=== PATIENT | female | born 1995 | race Caucasian/White ===

== ENCOUNTER 2017-09-17 16:22 | Emergency (ER) | payer OTHER, SELFPAY ==
[2017-09-17 16:23] VITALS: BP 137/94; PULSE 111; RESP 16; TEMP 35.4; O2SAT 98; BMI 25.7
--- NOTE | 2017-09-17 16:35 | ED.DCSUM_ITS ---
- ER Visit Summary Date of Service: 09/17/17 Chief Complaint: Migraine headache History of Present Illness: The patient is a 22 F with a history of migraines presenting with a migraine type headache for the past 5-6 days. It started as her typical migraine, not severe or sudden at onset. Not the worst headache of her life. It is in the same location and of the same character as usual but is persisting. She is nauseated and has vomited a few times and is concerned she is becoming dehydrated. No neck pain, fever, flulike symptoms, or recent sick contacts. No visual changes, paresthesias, or weakness. Physical Examination: Vitals are within normal limits except for mild tachycardia. She is not in distress. No meningeal findings. Turbinates not swollen and no secretions at the nares. Mucous membranes are somewhat dry. Heart tones are regular and without murmur. Lungs are clear bilaterally. Abdomen is soft and nontender. Is no focal or lateralizing neuro findings. Test Results: None performed Emergency Department Course and Treatment: She was ordered IV fluids, Benadryl Compazine and Toradol. She will be observed and repeat examination will be performed. This headache was not severe at onset or sudden onset. Not the worst headache of her life. Neurologic exam is normal. I do not feel she needs a head CT. She has no signs of meningitis and no infectious symptoms. Treatment Plan: IV fluids and medication Disposition: Home after reevaluation Impression: Initial encounter for acute migraine This note was generated with [employer] dictation software. It may contain incorrect words, spelling, and punctuation that were not noted in review of the chart prior to signing ED Disposition - Plan for ED Patient: Chief Complaint: Headache Instructions: ED Headache Migraine Referrals: Petar Mendieta MD [Primary Care Provider] - As soon as possible
[2017-09-17] MEDS: DiphenhydrAMINE 50 MG/ML Syringe 25 MG IV (16:59)
[2017-09-17] MEDS: Ketorolac 30 MG/ML Syringe IV (17:00)
[2017-09-17] MEDS: proCHLORPERazine 10 MG/2 ML Vial IV (17:00)
[2017-09-17] MEDS: 0.9% Normal Saline 1,000 ML 999 ML IV (17:00)
== END 2017-09-17 18:18 | disposition home or self-care (01) ==
PROVIDERS: Emergency Provider Emergency Medicine; Family Provider Physician Assistant; PCP Physician Assistant
DX: G43.909 Migraine, unspecified, not intractable, without status migrainosus (principal); G89.29 Other chronic pain; F41.9 Anxiety disorder, unspecified; Z72.0 Tobacco use; Z79.899 Other long term (current) drug therapy
CPT/HCPCS: 96361; 96374; 96375; 99283; J7030; A4216

== ENCOUNTER 2018-05-06 08:29 | Emergency (ER) | payer SELFPAY ==
[2018-05-06 08:30] VITALS: BP 138/106; PULSE 108; RESP 19; TEMP 36.4; O2SAT 99; BMI 28.3
--- NOTE | 2018-05-06 08:46 | CT_ITS ---
STUDY: CT ABDOMEN AND PELVIS WITHOUT CONTRAST REASON FOR EXAM: Female, 23 years old. Nausea. Abdominal pain. RADIATION DOSAGE (If Supplied By Facility): CTDIvol = ( 6.89 ) mGy, DLP = ( 340.86 ) mGycm TECHNIQUE: Transaxial images were obtained from the dome of the diaphragm to the symphysis pubis without oral contrast, and without intravenous contrast. Sagittal and coronal images were reconstructed. Individualized dose optimization techniques were used for this CT. COMPARISON: Comparison is made with prior study dated June 10, 2017. FINDINGS: The visualized lung bases are unremarkable. The visualized portions of the heart are within normal limits. Normal liver. Normal gallbladder and extrahepatic biliary system. Normal spleen. Normal pancreas. Normal bilateral adrenal glands. Normal right kidney. Normal left kidney. There is a small hiatal hernia. Normal small intestine. Normal colon. The appendix is visualized and appears normal. Normal abdominal aorta. Normal inferior vena cava. Normal retroperitoneum. Normal urinary bladder. Follicles are seen in both ovaries. Small benign-appearing bilateral inguinal lymph nodes. Normal osseous structures. CT/Abdomen/Pelvis without Cont IMPRESSION: No acute abnormality is seen. Electronically Signed: Arik Brown MD at 10:50 EDT Tel [phone], Service support ,
[2018-05-06 09:25] LABS: Bacteria 0 SEEN /hpf (None Seen); Mucous, Urine 0 SEEN /hpf (<or=2+); Red Blood Cells-Urine 0 SEEN /hpf (0-5)
[2018-05-06 09:45] LABS: Color, Urine Yellow (Yellow); Glucose, Dipstick Normal (Normal); Ketone-Dipstick 50 mg/dl (Negative); Leukocyte Esterase-Dipstick 25 /ul (Negative); Nitrite-Dipstick Negative (Negative); Occult Blood-Urine Negative /ul (Negative); Protein-Dipstick 15 mg/dl (Negative); Specific Gravity, Urine 1.015 (1.002-1.030); Urine Bilirubin Dipstick Negative (Negative); Urine Clarity Sl. Cloudy (Clear); Urine Urobilinogen Normal (Normal); Urine pH 6.5 (5.0 - 8.0)
[2018-05-06 09:53] LABS: Internal QC Validated? YES +Cl - CLEAR BKGD; Pregnancy, Urine Negative Negative
[2018-05-06 09:55] LABS: Squamous Epithelial Cells - UA 0-5 SEEN /hpf (5-10); White Blood Cells 0-5 SEEN /hpf (0-5)
--- NOTE | 2018-05-06 11:01 | ED.DCSUM_ITS ---
- ER Visit Summary Date of Service: 05/06/18 Chief Complaint: Abdominal pain History of Present Illness: The patient is a 23 F who states that she woke this morning with a sharp right lower quadrant abdominal pain. She notes associated nausea. She notes a history of ovarian cyst. She states that the pain is constant worse with movement. No fevers. Normal bowel movements Physical Examination: Afebrile vital signs are stable Gen: Well-nourished well-developed Head: Normocephalic atraumatic Eyes: Perrl EOMI ENT: TMs clear no rhinorrhea moist mucous membranes Neck: Supple no lymphadenopathy no JVD nontender CVS: Regular rate rhythm no murmurs normal S1-S2 Respiratory: No distress clear to auscultation bilaterally chest nontender Abdomen: Soft tender palpation in the right lower quadrant without guarding or rebound nondistended normal bowel sounds no masses Back: Nontender Extremity: Nontender no edema Skin: Normal color no rash Neuro: alert orientated ?3 CN II-XII intact normal strength sensation reflexes gait cerebellar Psych: Normal affect normal mood Test Results: Urinalysis and test were negative. CT abdomen pelvis negative. Emergency Department Course and Treatment: She will be discharged home with supportive care and observation. Return if worsening or concerns. Impression: 1. Abdominal pain This note was generated with [employer] dictation software. It may contain incorrect words, spelling, and punctuation that were not noted in review of the chart prior to signing ED Disposition - Plan for ED Patient: Disposition: Home or Assisted Living Chief Complaint: Abd Pain Instructions: ED Abdominal Pain Unkn Cause Prescriptions: Ibuprofen [Motrin] 800 mg PO TID PRN PRN #20 tab PRN Reason: Pain Referrals: Kyree Mcnamara PA [Primary Care Provider] - 1-2 Days if not improving
[2018-05-06 11:10] VITALS: BP 98/54; PULSE 79; RESP 14
== END 2018-05-06 11:13 | disposition home or self-care (01) ==
PROVIDERS: Emergency Provider Emergency Medicine; Family Provider Physician Assistant; PCP Physician Assistant
DX: R10.31 Right lower quadrant pain (principal); R11.0 Nausea; F32.9 Major depressive disorder, single episode, unspecified; Z79.899 Other long term (current) drug therapy
CPT/HCPCS: 74176; 81001; 81025; 99282

== ENCOUNTER 2018-05-11 10:59 | Emergency (ER) | payer SELFPAY ==
[2018-05-11 11:01] VITALS: BP 117/98; PULSE 89; RESP 15; TEMP 36.1; O2SAT 100
--- NOTE | 2018-05-11 11:15 | CT_ITS ---
STUDY: CT ABDOMEN AND PELVIS WITH CONTRAST REASON FOR EXAM: Female, 23 years old. 6 day history of right lower quadrant pain. RADIATION DOSAGE (If Supplied By Facility): CTDIvol = ( 14.06 ) mGy, DLP = ( 914.12 ) mGycm TECHNIQUE: Transaxial images were obtained from the dome of the diaphragm to the symphysis pubis with oral contrast. 100 ml of Isovue 300 contrast was administered. Sagittal and coronal images were reconstructed. Individualized dose optimization techniques were used for this CT. COMPARISON: Comparison is made with prior study dated May 06, 2018. FINDINGS: The visualized lung bases are unremarkable. The visualized portions of the heart are within normal limits. Normal liver. Normal gallbladder and extrahepatic biliary system. Normal spleen. Normal pancreas. Normal bilateral adrenal glands. Normal right kidney. Normal left kidney. There is a small hiatal hernia. Normal small intestine. Normal colon. The appendix is visualized and appears normal. Normal abdominal aorta. Normal inferior vena cava. There is borderline retroperitoneal lymphadenopathy with enlarged nodes no greater than 10mm in the short axis diameter. Distended urinary bladder. 2.2 cm cyst in the left ovary. Follicles are seen in the right ovary. Normal abdominal wall. Small benign-appearing bilateral inguinal nodes. Normal osseous structures. CT/Abdomen/Pelvis WITH Contrast IMPRESSION: Small left ovarian cyst. Distended urinary bladder. Electronically Signed: Arik Brown MD at 13:27 EDT Tel [phone], Service support ,
--- NOTE | 2018-05-11 11:16 | ED.VISSUMM ---
- ER Visit Summary Date of Service: 05/11/18 Chief Complaint: Abdominal pain History of Present Illness: The patient is a 23 F who reports that she has abdominal pain number began approximately 1 week ago. Is gradually gotten worse. Says sharp pain that is worst in the right lower quadrant. Is 10 out of 10 with movement 9 out of 10 when she remains still. She taken Tylenol, ibuprofen, and Flexeril without relief. She reports she has been nausea and vomiting. She vomited 3 times today. No blood or emesis. Last bowel was yesterday. She has had no melena, hematochezia, or diarrhea. No dysuria or frequency. Last menstrual period was April 14. No vaginal discharge. Physical Examination: Vitals: Stable. Afebrile. General: Well-nourished and well-developed. Head: Normocephalic atraumatic. Neck: Supple, no lymphadenopathy. No JVD. Nontender. Cardiovascular: Regular rate and rhythm. No murmurs. Respiratory: No respiratory distress. Clear to auscultation bilaterally. Abdominal: Soft, mild diffuse sinus palpation and moderate right lower quadrant tenderness to palpation, nondistended, normal bowel sounds. No guarding, rebound, or peritoneal signs. Back: Nontender. Extremities: Nontender, no edema. Skin: Normal color, no rash. Neurologic: Alert and oriented ?3. Cranial nerves II through XII are intact. Normal strength and sensation. Psych: Normal affect. Test Results: CBC and Chem-7 are normal. LFTs and lipase are normal. CT shows a normal appendix. Clinical Impression(s) from Imaging Studies Abdomen/Pelvis CT 05/11/18 11:15 IMPRESSION: Small left ovarian cyst. Distended urinary bladder. Electronically Signed: Arik Brown MD at 13:27 EDT Tel [phone], Service support , Emergency Department Course and Treatment: IV was placed. The patient was given Toradol and Zofran IV. She is resting comfortably. Treatment Plan: Patient will be discharged with Zofran and Bentyl. Instructed follow-up her primary care physician in 3-5 days if not improving. Return to the emergency department for any worsening symptoms. Disposition: To home in improved and stable condition. Impression: 1. Abdominal pain, uncertain cause. This note was generated with [employer] dictation software. It may contain incorrect words, spelling, and punctuation that were not noted in review of the chart prior to signing ED Disposition - Plan for ED Patient: Disposition: Home or Assisted Living Chief Complaint: Abd Pain Instructions: ED Abdominal Pain Unkn Cause Prescriptions: Ondansetron [Zofran Odt] 4 mg PO Q8H PRN PRN #10 tablet PRN Reason: Nausea Dicyclomine HCl [Bentyl] 20 mg PO TIDAC #20 capsule Referrals: Kyree Mcnamara PA [Primary Care Provider] - 3-5 Days if not improving
[2018-05-11] MEDS: Ondansetron 4 MG/2 ML Vial IV (11:29)
[2018-05-11] MEDS: 0.9% Normal Saline 1,000 ML 1000 ML IV (11:29)
[2018-05-11] MEDS: Ketorolac 30 MG/ML Syringe IV (11:30)
[2018-05-11 11:43] LABS: Absolute Lymphocyte Count 2.42 X10^3/ul (0.83-4.51); Absolute Neutrophil Count 6.2 X10^3/uL (2.0-7.7); Basophil# 0.02 X10^3/uL; Basophil% 0.2 % (0-1); Eosinophil# 0.16 X10^3/uL; Eosinophils% 1.7 % (0-5); Hemoglobin 12.5 g/dl (12.0-15.0); Lymphocyte # 2.42 X10^3/ul (4.0); Lymphocyte % 26.4 % (19-41); Mean Corp Hgb Conc 32.9 g/gl (32-36); Mean Corpuscular Hgb 29.2 pg (27.0-32.0); Mean Corpuscular Volume 88.8 fL (81-99); Mean Platelet Vol. 10.4 fl (6.2-12.0); Monocyte# 0.41 X10^3/uL; Monocyte% 4.5 % (0-10); Neutrophil # 6.15 X10^3/uL (2.7-7.7); POSITIVE COUNT NO; POSITIVE DIFFERENTIAL NO; POSITIVE MORPHOLOGY NO; Platelet Count 292 K/mm3 (150-450); RBC Distribution Width CV 13.6 % (11.6-14.6); RBC Distribution Width SD 44.1 fl (35.1-43.9); Red Blood Count 4.28 M/mm3 (4.2-5.4); White Blood Count 9.2 K/mm3 (4.4-11.0)
[2018-05-11 11:50] LABS: AST(SGOT) 20 U/L (15-37); Alanine Aminotransfer ALT/SGPT 26 U/L (13-56); Albumin, Serum 3.6 g/dL (3.2-5.0); Alkaline Phosphatase 68 U/L (45-117); Anion Gap 6 (5-15); BUN 11 mg/dL (7-18); BUN/Creat Ratio 15.7 RATIO (10-20); Bilirubin, Direct 0.09 mg/dL (0.00-0.30); Calcium,Total 8.8 mg/dL (8.5-10.1); Chloride 105 mmol/L (98-107); EST Glomerular Filtration Rate 110 mL/min (>60); Est Glom Filt Rate - Afr Amer 133 mL/min (>60); Globulin 3.9 g/dL (2.2-4.2); Glucose 86 mg/dL (74-106); Lipase 59 U/L (73-393); Potassium 3.6 mmol/L (3.5-5.1); Protein, Total 7.5 g/dL (6.4-8.2); Sodium Level 137 mmol/L (136-145)
[2018-05-11 13:30] VITALS: BP 103/58; PULSE 77; RESP 16; O2SAT 98
[2018-05-11 13:44] VITALS: BP 123/77; PULSE 74; RESP 18
== END 2018-05-11 13:45 | disposition home or self-care (01) ==
LOC: ED 11:16
PROVIDERS: Emergency Provider Emergency Medicine; Family Provider Physician Assistant; PCP Physician Assistant
DX: R10.9 Unspecified abdominal pain (principal); R11.2 Nausea with vomiting, unspecified; F32.9 Major depressive disorder, single episode, unspecified; F41.9 Anxiety disorder, unspecified; Z72.0 Tobacco use; Z79.899 Other long term (current) drug therapy
CPT/HCPCS: 74177; 80048; 80076; 83690; 85025; 96361; 96374; 96375; 99284; J7030; Q9967; A4216; J2405

== ENCOUNTER 2018-07-12 01:53 | Emergency (ER) | payer SELFPAY ==
[2018-07-12 01:53] VITALS: BMI 25.7
[2018-07-12 01:55] VITALS: BP 133/78; PULSE 77; RESP 16; TEMP 36.9; O2SAT 98; BMI 28.3
[2018-07-12] MEDS: proCHLORPERazine 10 MG/2 ML Vial IV (02:37)
[2018-07-12] MEDS: 0.9% Normal Saline 1,000 ML 999 ML IV (02:37)
[2018-07-12] MEDS: DiphenhydrAMINE 50 MG/ML Syringe 25 MG IV (02:37)
[2018-07-12] MEDS: Ketorolac 30 MG/ML Syringe IV (02:38)
--- NOTE | 2018-07-12 03:20 | ED.VISSUMM ---
- ER Visit Summary Date of Service: 07/12/18 Chief Complaint: Headache History of Present Illness: The patient is a 23 F who presents with a headache. It is been going on for about 3 days. She complains of a throbbing retro-orbital headache which she rates as 10 out of 10. She developed nausea and vomiting. She also reports light sensitivity. These symptoms are similar to her previous migraines. Her headache is similar in character and location to previous migraines. She states that this just is not resolved with usual treatment. She has been taking Tylenol and anti-inflammatories and Imitrex which normally help but did not help this time. She otherwise has anxiety depression but no other medical history. No history of head injury. No fever. No neck pain or stiffness. Physical Examination: Afebrile vitals are normal Moist mucous membranes Heart regular rate and rhythm Lungs clear Abdomen soft Alert No focal or lateralizing neurological deficits Test Results: Not indicated Emergency Department Course and Treatment: Patient was treated with Toradol, Compazine, Benadryl. I was notified by nursing staff that she was significantly improved and would like to be discharged. She understands return for new or worsening symptoms. Treatment Plan: [] Disposition: Discharge Impression: Migraine This note was generated with [employer] dictation software. It may contain incorrect words, spelling, and punctuation that were not noted in review of the chart prior to signing ED Disposition - Plan for ED Patient: Chief Complaint: Headache Referrals: Kyree Mcnamara PA [Primary Care Provider] -
--- NOTE | 2018-07-12 03:22 | ED.DEP ---
ED Disposition - Plan for ED Patient: Chief Complaint: Headache Instructions: ED Headache Migraine Referrals: Kyree Mcnamara PA [Primary Care Provider] -
[2018-07-12 03:46] VITALS: RESP 14
== END 2018-07-12 03:46 | disposition home or self-care (01) ==
LOC: ED 02:15
PROVIDERS: Emergency Provider Emergency Medicine; Family Provider Physician Assistant; PCP Physician Assistant
DX: G43.909 Migraine, unspecified, not intractable, without status migrainosus (principal); F32.9 Major depressive disorder, single episode, unspecified; F41.9 Anxiety disorder, unspecified; Z72.0 Tobacco use; Z79.899 Other long term (current) drug therapy
CPT/HCPCS: 96361; 96374; 96375; 99283; J7030; A4216

== ENCOUNTER 2018-10-12 22:02 | Emergency (ER) | payer SELFPAY ==
[2018-10-12 22:03] VITALS: BP 142/90; PULSE 106; RESP 18; TEMP 37; O2SAT 97; BMI 27.4
--- NOTE | 2018-10-12 22:20 | ED.VISSUMM ---
- ER Visit Summary Date of Service: 10/12/18 Chief Complaint: Headache History of Present Illness: The patient is a 23 F with history of migraine headache presents to the emergency department with headache. Patient states this is her normal headache. It started yesterday. She states that this is her normal headache. She describes as a dull ache in her eyes and photophobia. She is also had nausea and vomiting. She is tried sumatriptan with little improvement. She denies any fevers or chills. She denies any trauma. She had no neck pain. Physical Examination: Well-appearing patient is in no acute distress. Head is normocephalic, atraumatic. Pupils equal round reactive, extraocular muscles intact. There is no temporal artery tenderness. There is no vesicular rash. Neck supple. Kernig's and Brudzinski's are negative. Heart regular rate and rhythm. Lungs clear, chest nontender. Abdomen soft, nontender, nondistended. Neuro exam displays no focal or lateralizing deficit. 2+ symmetric lower extremity reflexes. No clonus. No ataxia or gait abnormality. Test Results: [] Emergency Department Course and Treatment: The patient presents with a normal headache. She is not meningitic. She is nonencephalopathic. She has a normal neurologic examination. IV was established. The patient was treated with migraine abortive medications. On reevaluation, she is feeling markedly improved. She continues to have a normal exam. At this time, I do feel that she is safe for outpatient therapy. Patient states she does not need any refills on her medications. She is counseled on concerning symptoms and reasons to return. She will be discharged home. Treatment Plan: [] Disposition: Discharge Impression: Migraine headache This note was generated with [employer] dictation software. It may contain incorrect words, spelling, and punctuation that were not noted in review of the chart prior to signing ED Disposition - Plan for ED Patient: Instructions: ED Headache Migraine Referrals: Kyree Mcnamara PA [Primary Care Provider] -
[2018-10-12] MEDS: 0.9% Normal Saline 1,000 ML 999 ML IV (22:28)
[2018-10-12] MEDS: DiphenhydrAMINE 50 MG/ML Syringe IV (22:29)
[2018-10-12] MEDS: Ketorolac 30 MG/ML Syringe IV (22:29)
[2018-10-12] MEDS: proCHLORPERazine 10 MG/2 ML Vial IV (22:29)
[2018-10-12 23:00] VITALS: BP 113/73; PULSE 78; RESP 15; O2SAT 99
== END 2018-10-12 23:03 | disposition home or self-care (01) ==
PROVIDERS: Emergency Provider Emergency Medicine; Family Provider Physician Assistant; PCP Physician Assistant
DX: G43.909 Migraine, unspecified, not intractable, without status migrainosus (principal); Z79.899 Other long term (current) drug therapy
CPT/HCPCS: 96361; 96374; 96375; 99282; J7030

== ENCOUNTER 2021-11-05 11:56 | Emergency (ER) | payer MEDICAID, SELFPAY ==
[2021-11-05 11:56] VITALS: BP 117/74; PULSE 94; RESP 16; TEMP 36.4; O2SAT 97; BMI 26.5
--- NOTE | 2021-11-05 13:20 | EX.ED.VIS.HA ---
HPI History of Present Illness Chief Complaint: Headache Informant: patient and parent Onset/Context/Timing Onset: Yesterday Context: Gradual Timing: Continuous Quality -Headache: Positive for Similar Prior Headaches and Sharp Current Severity: Moderate Maximum Severity: Moderate Associated Symptoms/Injury Associated Symptoms: Positive for Nausea, Vomiting and Photophobia; Negative for Fever, Sore Throat, Sinus Pressure, Numbness, Tingling, Preceding Aura, Visual Changes, Blurred Vision and Visual Loss Injury - ARELLANO: Negative for Direct Trauma, Fall and Assault Narrative Narrative: 26-year-old female history of migraine headaches. Mom also has a history of migraine headaches. Patient has had multiple the last several years. States it began gradually yesterday. Behind her left eye. Associated with nausea and vomiting. No fever. No trauma. No neck pain. No family history of intracranial bleeds or aneurysms. This is typical for one of her migraines. Prior similar symptoms: Yes Recent Illness/Hospitalization: No PFSH PFSH Medical History Hx of migraines Home Medications sumatriptan succinate [Imitrex] 100 mg PO DAILY PRN 06/10/17 [History Last Taken Unknown] norethindrone (contraceptive) [Sharobel] 0.35 mg PO DAILY 05/11/18 [History Last Taken Unknown] venlafaxine 75 mg PO DAILY 10/12/18 [History Last Taken Unknown] Allergy/AdvReac Type Severity Reaction Status Date / Time latex Allergy Rash Verified 11/05/21 11:58 Social History Smoking Status: Current every day smoker tobacco type: cigarettes ROS ROS ED ROS Narrative Headache or nausea and vomiting. Review of Systems ROS Unobtainable: Denies due to encephalopathy Constitutional Constitutional ED: Denies fever(s) Eyes Eyes: Denies change in vision ENT ENT ED: Denies ear pain Cardiovascular Cardiovascular: Denies chest pain Respiratory/Chest Respiratory/Chest: Denies cough, dyspnea or sputum Gastrointestinal Gastrointestinal: Reports nausea and vomiting; Denies abdominal pain, constipation or diarrhea Genitourinary Genitourinary ED: Denies dysuria Musculoskeletal Musculoskeletal: Denies myalgias Integumentary Denies rash Neurologic Neurologic: Reports headache(s) Psychiatric Psychiatric: Denies depression Endocrine Endocrinology: Denies polyuria Hematologic/Lymphatic Hematologic/Lymphatic: Denies easy bruising Allergic/Immunologic Allergic/Immunologic ED: Denies urticaria EXAM Physical Exam Narrative Exam Narrative: 6-year-old female lying in darkened room. Vital signs are stable afebrile. H EENT exam unremarkable. Photophobia. Neck nontender no meningismus. Lungs clear to auscultation. Heart regular rhythm no murmur. Abdomen soft nontender. Moving all 4 extremities. Normal warp dyeing vat tender strength. Normal dorsi plantar flexion. Neurologic exam normal. NIH is 0. Fingertip to nose within normal limits bilaterally. Const Vital Signs: 11/05/21 11:56 Temperature 97.6 F L Temperature Source Temporal Pulse Rate 94 Respiratory Rate 16 Blood Pressure 117/74 Blood Pressure Mean 88 Pulse Ox 97 Oxygen Delivery Method Room Air Positive well nourished and well developed; Negative for obese, cachectic, contractures or unkempt General Appearance ED: well developed and NAD; Negative for unkempt, cachectic, contractures, cyanotic or diaphoretic Nutritional Appearance: Negative for cachectic or obese HEENT Reports normocephalic and moist mucous membranes atraumatic; Negative for trauma or tenderness Eyes PERRL and EOMs intact bilaterally General Eye ED: Negative for pale conjunctiva or scleral icterus Neck no lymphadenopathy, supple, no meningeal signs and no JVD General: Negative for tenderness Resp normal respiratory effort and clear to auscultation bilaterally Auscultation: Negative for rales, rhonchi or wheezes Cardio regular rate, regular rhythm, S1 normal heart sound, S2 normal heart sound and no murmurs GI non-tender and non-distended Auscultation: normoactive bowel sounds Palpation: soft; Negative for firm, tender, guarding or rigid Back/Spine no CVA tenderness General Back: Negative for CVA tenderness or tenderness Cervical Spine: Negative for cervical spine tenderness Thoracic Spine / Upper Back: Negative for thoracic spinal tenderness Extremity normal to inspection and full ROM General Extremety ED: Negative for edema or tenderness General Extremity: Negative for edema Neuro oriented x3, CN's II-XII intact bilaterally and no sensory deficits noted Sensorium / Orientation: awake, alert, oriented to person, oriented to place and oriented to time; Negative for orientation impaired, lethargic or stuporous Coordination / Balance: [id number] test normal Speech: speech normal Motor Exam: strength 5/5 throughout Psych mental status grossly normal Appearance: Negative for unkempt Mood & Affect: Negative for depressed or tearful Skin General Skin Exam: Negative for jaundice Lesions: no lesions Rashes: no rashes MDM MDM MDM Narrative Medical decision making narrative: 26-year-old female history of migraines. Exam and history are consistent with a migraine headache. Treated with IV fluids, Toradol, Compazine and Benadryl be reassessed. Repeat exam patient is doing well at 1:53 PM. Headache is resolving after medications. Neurologic exam remains normal. Clinically she looks improved and states is feeling improved and wants to be discharged home. Discharge Plan Triage Chief Complaint: Headache ED Provider: Niels Keith Dx/Rx/DC Orders Clinical Impression: Acute migraine Instructions: ED, Migraine (Classical) Prescriptions: No Action sumatriptan succinate [Imitrex] 100 MG tablet 100 mg PO DAILY PRN (Reason: Migraines) RF: 0 norethindrone (contraceptive) [Sharobel] 0.35 MG tablet 0.35 mg PO DAILY RF: 0 venlafaxine 75 MG tablet 75 mg PO DAILY RF: 0 Primary Care Provider: Kyree Mcnamara Referrals: Kyree Mcnamara PA [Primary Care Provider] - 1-2 Days if not improving Activity Restrictions/Additional Instructions: Plenty of fluids and rest. Follow-up with your primary care provider if not improving or return emergency department if feeling worse. Disposition Disposition: Home, Self Care
[2021-11-05] MEDS: Ketorolac 30 MG/ML Syringe IV (13:33)
[2021-11-05] MEDS: DiphenhydrAMINE 50 MG/ML Syringe IV (13:33)
[2021-11-05] MEDS: proCHLORPERazine 10 MG/2 ML Vial IV (13:33)
[2021-11-05] MEDS: 0.9% Normal Saline 1,000 ML 1000 ML IV (13:33)
[2021-11-05 14:20] VITALS: BP 124/63; PULSE 56; RESP 17; O2SAT 98
== END 2021-11-05 14:22 | disposition home or self-care (01) ==
LOC: ED 13:32
PROVIDERS: Emergency Provider Emergency Medicine; PCP Physician Assistant; Visit Provider Emergency Medicine
DX: G43.909 Migraine, unspecified, not intractable, without status migrainosus (principal); F17.210 Nicotine dependence, cigarettes, uncomplicated; Z79.899 Other long term (current) drug therapy
CPT/HCPCS: 96361; 96374; 96375; 99283; J7030; A4216